=== PATIENT | male | born 1990 | race Asian ===

== ENCOUNTER 2024-12-27 23:36 | Emergency (ER) | payer OTHER ==
[~2024-12-27] VITALS: Ht 172.7 cm; Wt 72.6 kg
[2024-12-28] MEDS: IV NORMAL SALINE 1000 ML BAG IV ONE (00:05)
[2024-12-28 00:19] LABS: CREATININE 0.9 mg/dL (0.6-1.3); SODIUM SERUM 138.0 mmol/L (136-145); UREA NITROGEN, BLOOD 23.0 mg/dL (7-18)
[2024-12-28 00:22] LABS: PLATELET COUNT (AUTO) 235 K/uL (152-348); RED BLOOD CELL COUNT(AUTO) 7.04 MIL/uL (4.06-5.63); RED CELL DISTRIBUTION WIDTH 17.3 % (12.1-16.2); WHITE BLOOD COUNT (AUTO) 13.4 K/uL (3.6-10.2)
[2024-12-28 00:24] LABS: ASPARTATE AMINOTRANSFERASE 141.0 U/L (15-37); TOTAL PROTEIN, SERUM 8.0 g/dL (6.4-8.2)
[2024-12-28] MEDS ORDERED: KETOROLAC TROMETHAMINE 15 MG INJ ONE (00:25)
[2024-12-28] MEDS ORDERED: ONDANSETRON 4 MG/2 ML VIAL ONE (00:25)
[2024-12-28] MEDS ORDERED: HYDROMORPHONE 1 MG/1 ML DISP.SYRIN ONE (00:26)
[2024-12-28] MEDS: ONDANSETRON 4 MG/2 ML VIAL IV ONE (00:37)
[2024-12-28] MEDS: HYDROMORPHONE 1 MG/1 ML DISP.SYRIN IV ONE (00:37)
[2024-12-28] MEDS: KETOROLAC TROMETHAMINE 15 MG INJ IVP ONE (00:38)
[2024-12-28] MEDS ORDERED: ONDA4TAB11 PO (01:14)
[2024-12-28] MEDS ORDERED: IBUP-1490 PO (01:14)
[2024-12-28 01:15] LABS: EOSINOPHILS % (MANUAL) 1 % (0-8); LYMPHOCYTES % (MANUAL) 20 % (20-40); MONOCYTES % (MANUAL) 6 % (2-10); NEUTROPHILS % (MANUAL) 73 % (42-75); PLATELET ESTIMATE ADEQUATE
[2024-12-28 01:39] VITALS: BP 131/78
[2024-12-28 02:52] VITALS: BP 135/81; O2SAT 99
== END 2024-12-28 02:40 | disposition home or self-care (01) ==
LOC: ER 23:43
DX: R53.1 Weakness (principal); R74.01 Elevation of levels of liver transaminase levels; E80.6 Other disorders of bilirubin metabolism; R42 Dizziness and giddiness; R51.9 Headache, unspecified; R10.9 Unspecified abdominal pain; R19.7 Diarrhea, unspecified; Z20.822 Contact with and (suspected) exposure to COVID-19
CPT/HCPCS: 99284; 96374; 96375; 87426; 87804 ×2; 80076; 80048; 83690; 85007; 85027; 36415; 93005; J1885; J2405; J1171; 70030-TC; A4606; A4663